=== PATIENT | male | born 1965 | race Caucasian/White ===

== ENCOUNTER → 2017-08-27 | Outpatient (CLI) | payer OTHER ==
[~2017-08-27] MED LIST: IOPAMIDOL 370 MG/ML 200 ML INFUS..BTL INJ ONE; SODIUM CHLORIDE 0.9% 50ML 50 ML ONE
--- NOTE | 2017-08-27 09:06 | Diagnostic Imaging Report ---
PROCEDURE: CT ABDOMEN WITH AND WITHOUT CONTRAST TECHNIQUE: The abdomen was scanned utilizing a multidetector helical scanner from the diaphragm to the iliac crest before and after the IV administration of 100 cc of Isovue 370 and the oral administration of Gastrografin.). Coronal and sagittal multiplanar reformations were obtained. COMPARISON: None. INDICATIONS: RENAL MASS FINDINGS: LOWER THORAX: Normal. HEPATOBILIARY: No focal hepatic lesions. No biliary ductal dilatation. Gallbladder is unremarkable. SPLEEN: Coarse calcification likely post infectious or inflammatory. No splenomegaly. PANCREAS: No focal masses or ductal dilatation. ADRENALS: No adrenal nodules. KIDNEYS: Left kidney: 2.7 cm lesion in the left upper pole with attenuation characteristics as follows: Pre-contrast 6 Hounsfield units, arterial phase 17 Hounsfield units, excretory phase 15 Hounsfield units 1.3 cm lesion in the left lower pole with attenuation characteristics as follows: Pre-contrast 10 Hounsfield units, arterial phase 12 Hounsfield units, excretory phase 6 Hounsfield units. Right kidney: 1.5 cm lesion in the interpolar right kidney with attenuation characteristics as follows: Pre-contrast 6 Hounsfield units, arterial phase 14 Hounsfield units, delayed/excretory phase 0 Hounsfield units. 6.6 cm lobulated hypoattenuating lesion with a punctate mural calcification and thin internal septation with attenuation characteristics as follows: Pre-contrast 6 Hounsfield units Arterial phase 10 Hounsfield units, excretory phase 12 Hounsfield units. Additionally, there are bilateral nonobstructing renal calculi measuring up to 4 mm in the left lower pole, 11 mm in the right upper pole, and 9 mm in the right lower pole. No solid mass lesion. Excretory phase images show no hydronephrosis or filling defects within the upper collecting systems or ureters. PERITONEUM / RETROPERITONEUM: No free air or fluid. LYMPH NODES: No retroperitoneal or mesenteric lymphadenopathy. VESSELS: The abdominal aorta is non-aneurysmal. 2 renal arteries supply each kidney. Portal vein, splenic vein, and central superior mesenteric vein are patent. GI TRACT: Visualized portions of the large bowel show no evidence of distention or wall thickening. The appendix is not identified and may have been removed. No small bowel dilatation to suggest obstruction. Prominence of the gastric rugal folds is likely a consequence of under distention. BONES AND SOFT TISSUES: No focal soft tissue abnormalities. No osseous destructive lesions. IMPRESSION: Multiple bilateral renal cysts measuring up to 2.7 cm on the left and 6.6 cm on the right. The largest right renal cyst is minimally complex with a mural calcification and questionable thin internal septation (Bosniak category 2). No solid renal mass lesions. Bilateral nonobstructing renal calculi. Dictated by: Tr Akers M.D. on 08/27/2017 at 9:09 Electronically approved by: Tr Akers M.D. on 08/27/2017 at 9:09
== END ==
LOC: CT 07:20
PROVIDERS: ATTEND Urology
DX: D41.00 Neoplasm of uncertain behavior of unspecified kidney (principal); N28.1 Cyst of kidney, acquired
CPT/HCPCS: 74170; Q9967

== ENCOUNTER → 2018-01-10 | Outpatient (CLI) | payer OTHER ==
--- NOTE | 2018-01-10 08:58 | Diagnostic Imaging Report ---
PROCEDURE:US RETROPERITONEAL ( KIDNEY ). COMPARISON:CT abdomen and pelvis with and without contrast 08/27/2017. INDICATIONS:CALCULUS OF KIDNEY/ CYST OF KIDNEY TECHNIQUE: Blanco-scale and color sonographic images of the bilateral kidneys and bladder where obtained in transverse and longitudinal planes. FINDINGS: RIGHT KIDNEY: 10.8 cm in length, cortical thickness 1.6 cm. Cysts: Lobulated simple cyst projects from the lower pole and measures 6.7 x 5.5 x 5.1 cm, stable compared to prior CT when accounting for differences in technique. Solid masses: None Stones: None Hydronephrosis: None Echogenicity: Normal renal cortical echogenicity. LEFT KIDNEY: 10.4 cm in length, cortical thickness 2.3 cm. Cysts: Stable anechoic cyst in the upper pole measuring 3 x 2.4 x 2.7 cm relative to prior CT when accounting for differences in technique. Stable simple cyst within the lower pole measuring 1.2 x 1.2 x 1.2 cm. Solid masses: None Stones: None Hydronephrosis: None Echogenicity: Normal renal cortical echogenicity. Bladder: Unremarkable. Right and left ureteral jets are identified. Prostate: 3.2 x 2.5 x 4.7 cm. CONCLUSION: When accounting for differences in technique, stable appearance of bilateral simple renal cysts relative to CT abdomen and pelvis with and without contrast 08/27/2017. Punctate calculi described on the comparison CT examination are not identified by sonography. No hydronephrosis. Dictated by: Tr Akers M.D. on 01/10/2018 at 9:07 Electronically approved by: Tr Akers M.D. on 01/10/2018 at 9:07
== END ==
LOC: US 07:04
PROVIDERS: ATTEND Urology
DX: N20.0 Calculus of kidney (principal); N28.1 Cyst of kidney, acquired
CPT/HCPCS: 76770

== ENCOUNTER → 2018-03-16 | Outpatient (CLI) | payer OTHER ==
--- NOTE | 2018-03-16 09:04 | Diagnostic Imaging Report ---
PROCEDURE:US RETROPERITONEAL ( KIDNEY ). COMPARISON:[facility], [place], US RETROPERITONEAL ( KIDNEY )., 01/10/2018, 7:57. INDICATIONS:RENAL CYST TECHNIQUE: Blanco-scale and color sonographic images of the bilateral kidneys and bladder where obtained in transverse and longitudinal planes. FINDINGS: RIGHT KIDNEY: Measures 11.8 x 5.1 x 4.9 cm, cortex measures 1.5 cm Cysts: Lower pole cyst measures 6.1 x 6.1 x 5.8 cm. Lateral midpole cysts measures 1.8 x 1.4 x 1.8 cm and a second adjacent one measures 0.8 x 1.1 x 1.3 cm. Solid masses: None Stones: None Hydronephrosis: None Echogenicity: Normal LEFT KIDNEY: Measures 10.7 x 5.1 x 5.4 cm, cortex measures 1.9 cm Cysts: Midpole cyst measures 4.1 x 3.0 x 2.9 cm. Inferior-mid renal cysts measure 1.5 x 1.2 x 1.2 and 1.0 x 1.0 x 0.9 cm. Solid masses: None Stones: None Hydronephrosis: None Echogenicity: Normal Bladder: Bilateral urinary jets noted. Estimated bladder volume is 157 cc Prostate: Estimated volume is 23.5 cc. CONCLUSION: 1. Dominant cyst on the right kidney does not appear significantly changed. 2. Left midpole dominant cyst has enlarged. Angel Luis Velasquez D.O. Dictated by: Angel Luis Velasquez D.O. on 03/16/2018 at 9:14 Electronically approved by: Angel Luis Velasquez D.O. on 03/16/2018 at 9:14
== END ==
LOC: US 07:27
PROVIDERS: ATTEND Urology
DX: N28.1 Cyst of kidney, acquired (principal)
CPT/HCPCS: 76770

== ENCOUNTER → 2018-07-18 | Outpatient (CLI) | payer OTHER ==
--- NOTE | 2018-07-18 08:16 | Diagnostic Imaging Report ---
Exam: Abdominal film Clinical History: Renal cyst Comparison: None. DISCUSSION: The bowel gas pattern shows no dilated, air-filled loops of bowel. No mass effect or organomegaly. 3 mm calcification projects over the central aspect of the right renal shadow. No additional calcifications project over the renal shadows or expected ureteral courses. Regional skeletal structures are intact. Mild degenerative disc changes of the lumbar spine. IMPRESSION: Probable [address] renal calculus. CT abdomen and pelvis without contrast may be of benefit for further evaluation if clinically warranted. Nonobstructive bowel gas pattern. Signed by: Dr. Tr Akers M.D. on 07/18/2018 8:13 AM
== END ==
LOC: RAD 07:26
PROVIDERS: ATTEND Urology
DX: N20.0 Calculus of kidney (principal)
CPT/HCPCS: 74018

== ENCOUNTER → 2018-10-17 | Outpatient (CLI) | payer OTHER ==
--- NOTE | 2018-10-17 08:28 | Diagnostic Imaging Report ---
Exam: KUB - 2 views Clinical History: Renal calculi Comparison: KUB of 07/18/2018 Findings: There is a 6 mm calcific density overlying the lateral portion of the lower pole of the left kidney. A 4 mm calcific density overlies the central portion of the midpole of the right kidney and a 3 mm calcific density is seen more laterally. Nonobstructive bowel gas pattern. The osseous structures appear unremarkable. No free air. Impression: 4 mm and 3 mm calcific densities overlying the right kidney and 6 mm calcific density overlying the left kidney may represent renal calculi. Signed by: Manohar De La Rosa MD on 10/17/2018 8:25 AM
== END ==
LOC: RAD 06:51
PROVIDERS: ATTEND Urology
DX: N20.0 Calculus of kidney (principal)
CPT/HCPCS: 74018

== ENCOUNTER → 2019-09-07 | Outpatient (CLI) | payer OTHER ==
--- NOTE | 2019-09-07 17:40 | Diagnostic Imaging Report ---
EXAM: ABDOMEN-1VIEW (KUB) DATE: 09/07/2019 4:42 PM INDICATION: ^[id number] ^[id number] ^CALCULUS OF KIDNEY COMPARISON: KUB, 10/17/2018 FINDINGS: Supine views of the abdomen show a normal distribution of air in small and large bowel. Bowel contents partially obscure both kidneys and there is a 5 mm calcification projected on the upper pole right kidney. Previously noted small suspected bilateral renal calculi are not seen, but are in areas obscured by overlying bowel. No acute bony abnormality. 2.3 cm well-defined multiloculated lucency in the right femoral neck and head. IMPRESSION: 1. 6 mm calcification upper pole right kidney compatible with small calculus. Other previously reported small renal calculi aren't areas obscured by overlying bowel. 2. There is a multiloculated well-defined lytic lesion in the right femoral neck and head. Consider further evaluation with MRI of the right femur. Signed by: Dr. Jared Beasley M.D. on 09/07/2019 5:36 PM
== END ==
LOC: RAD 16:34
PROVIDERS: ATTEND Urology
DX: N20.0 Calculus of kidney (principal)
CPT/HCPCS: 74018

== ENCOUNTER → 2020-06-21 | Day surgery (SDC) | payer OTHER ==
[2020-06-18 15:54] LABS: BASOPHILS # (AUTO) 0.1 (0.0-0.1); EOSINOPHILS # (AUTO) 0.2 (0.0-0.4); EOSINOPHILS % 3.3 % (0.0-6.0); HEMATOCRIT 40.2 % (38.2-49.6); HEMOGLOBIN 13.6 g/dL (14.0-18.0); LYMPHOCYTES # (AUTO) 1.5 (1.0-3.2); LYMPHOCYTES % 25.6 % (18.0-39.1); MEAN CORPUSCULAR HEMOGLOBIN 32.1 pg (28-32); MEAN CORPUSCULAR HGB CONC 33.8 g/dL (31-35); MEAN CORPUSCULAR VOLUME 94.8 fL (81-99); MONOCYTES # (AUTO) 0.6 (0.2-0.8); MONOCYTES % 9.6 % (4.4-11.3); NEUTROPHILS # (AUTO) 3.5 (2.1-6.9); PLATELET COUNT 193 x10e3/uL (140-360); RED BLOOD COUNT 4.24 x10e6/uL (4.3-5.7); RED CELL DISTRIBUTION WIDTH 13.7 % (11.7-14.4)
[2020-06-18 16:23] LABS: ANION GAP 12.3 mmol/L (8-16); BLOOD UREA NITROGEN 13 mg/dL (7-26); BUN/CREATININE RATIO 13 (6-25); CALCIUM 9.6 mg/dL (8.4-10.2); CARBON DIOXIDE 28 mmol/L (22-29); CHLORIDE 105 mmol/L (98-107); CREATININE, SERUM 1.02 mg/dL (0.72-1.25); EST GLOMERULAR FILTRATION RATE > 60 ML/MIN (60-); GLUCOSE 92 mg/dL (74-118); POTASSIUM 4.3 mmol/L (3.5-5.1); SODIUM 141 mmol/L (136-145)
[~2020-06-21] MED LIST changes: +ALTOPREV40 MG PO; +BUPIVACAINE 0.25% 30ML SDV ONE; +DEXAMETHASONE SOD PHOS INJ 4 MG/ML VIAL ONE; +FENTANYL CITRATE/PF 100MCG/2 ML INJ ONE; +FISH OIL 1,0001 EAC2 PO; -IOPAMIDOL 370 MG/ML 200 ML INFUS..BTL INJ ONE; +KETOROLAC TROMETHAMINE 30 MG/ML VIAL ONE; +LIDOCAINE 1% W/EPINEPHRINE 20 ML VIAL ONE; +LIDOCAINE HCL 2% JELLY 5 ML TUBE ONE; +MIDAZOLAM HCL 2 MG/2 ML VIAL ONE; +MULTI-VITAMIN1 EACH PO; +OMEPRAZOLE20 M1 PO; +ONDANSETRON HCL INJ 2MG/ML 2ML 2 MG/ML VIAL ONE; +PROPOFOL IV EMULSION 10 MG/ML 20 ML VIAL ONE; +SEVOFLURANE INHAL SOLN 250 ML PEN BTL ONE; -SODIUM CHLORIDE 0.9% 50ML 50 ML ONE; +SYN PO; +SYNTHROID125 MCG PO
[2020-06-21 12:45] VITALS: BP 121/73
== END | disposition home or self-care (01) ==
LOC: OR 05:58
PROVIDERS: ATTEND Surgery
DX: K40.90 Unilateral inguinal hernia, without obstruction or gangrene, not specified as recurrent (principal); E03.9 Hypothyroidism, unspecified; K21.9 Gastro-esophageal reflux disease without esophagitis; N20.0 Calculus of kidney; E78.00 Pure hypercholesterolemia, unspecified; I45.10 Unspecified right bundle-branch block; Z88.0 Allergy status to penicillin; Z01.810 Encounter for preprocedural cardiovascular examination; Z01.812 Encounter for preprocedural laboratory examination; Z20.822 Contact with and (suspected) exposure to COVID-19
CPT/HCPCS: 36415; 49505; 80048; 85025; 93005; J1100; J1885; J2001; J2250; J2405; J2704; J3010; U0002